=== PATIENT | male | born 1965 | race Caucasian/White ===

== ENCOUNTER 2020-05-30 16:52 | Emergency (ER) | payer BC ==
[~2020-05-30] VITALS: Ht 182.9 cm; Wt 95.3 kg
== END 2020-05-30 18:20 | disposition home or self-care (01) ==
LOC: ED 16:52
DX: S61.412A Laceration without foreign body of left hand, initial encounter (principal); W26.8XXA Contact with other sharp object(s), not elsewhere classified, initial encounter
CPT/HCPCS: 12002; 90471; 90715; 99282-25